=== PATIENT | male | born 1990 | race Caucasian/White ===

== ENCOUNTER 2020-12-09 15:46 | Emergency (ER) | payer OTHER ==
[2020-12-09 16:08] VITALS: BP 132/83; PULSE 108; TEMP 100; BMI 30.9
[2020-12-09] MEDS ORDERED: ACETAMINOPHEN 500 MG TABLET (FP) PO ONE (16:20)
[2020-12-09] MEDS ORDERED: ACETAMINOPHEN 325 MG TABLET (FP) ONE (16:56)
[2020-12-09] MEDS ORDERED: CLINDAMYCIN HCL 150 MG CAPSULE (FP) PO ONE (17:35)
[2020-12-09] MEDS ORDERED: CLINDAMYCIN HCL 150 MG CAPSULE (FP) ONE (17:42)
== END 2020-12-09 17:52 | disposition home or self-care (01) ==
LOC: FER 15:46
PROC: 0CQ0XZZ Repair Upper Lip, External Approach (ICD-10-PCS; principal; 2020-12-09)
DX: S01.511A Laceration without foreign body of lip, initial encounter (principal)
CPT/HCPCS: 99284-25